=== PATIENT | female | born 1970 | race Caucasian/White ===

== ENCOUNTER 2017-04-03 05:30 | Day surgery (SDC) | payer OTHER ==
[~2017-04-03] VITALS: Ht 172.7 cm; Wt 87.1 kg
[2017-04-03 05:52] VITALS: O2SAT 99
[2017-04-03] MEDS ORDERED: CEFAZOLIN 2 GM IVPB PREMIX 50 ML IV ONE (07:20)
[2017-04-03] MEDS ORDERED: NS 1000 ML BAG IV ONE (07:20)
[2017-04-03] MEDS ORDERED: ROCURONIUM BROMIDE 10 MG/ML (ZEMURON) IV ONE (07:20)
[2017-04-03] MEDS ORDERED: MIDAZOLAM HCL 5 MG/5 ML VIAL IVP ONE (07:20)
[2017-04-03] MEDS ORDERED: ONDANSETRON HCL 4 MG/2 ML VIAL IVP ONE (07:20)
[2017-04-03] MEDS ORDERED: BUPIVACAINE /EPINEPHRINE/PF 0.5% 30 ML VIAL INJ ONE (07:20)
[2017-04-03] MEDS ORDERED: KETOROLAC TROMETHAMINE 30 MG VIAL IVP ONE (07:20)
[2017-04-03] MEDS ORDERED: SEVOFLURANE 15 MIN GAS INH ONE (07:20)
[2017-04-03] MEDS ORDERED: PROPOFOL 200MG/ 20ML VIAL (DIPRIVAN) IV ONE (07:20)
[2017-04-03] MEDS ORDERED: fentaNYL CITRATE 250 MCG/5 ML AMP IV ONE (07:20)
[2017-04-03] MEDS ORDERED: NS IRRIG SOLN 1000 ML IR ONE (07:20)
[2017-04-03] MEDS ORDERED: LR 1,000 ML IV.SOLN IV ONE (07:20)
[2017-04-03] MEDS ORDERED: LR 1,000 ML IV SCH (09:23)
[2017-04-03] MEDS ORDERED: MORPHINE 4 MG/ML INJ. SYRINGE IVP PRN ×2 (09:30)
[2017-04-03] MEDS ORDERED: ONDANSETRON HCL 4 MG/2 ML VIAL IVP PRN (09:30)
[2017-04-03] MEDS ORDERED: OXYCODONE/ACETAMINOPHEN 5-325 TABLET PO PRN (09:30)
[2017-04-03] MEDS ORDERED: METOCLOPRAMIDE HCL 10 MG/2 ML VIAL IVP PRN (09:30)
[2017-04-03] MEDS ORDERED: HYDROmorphone 2 MG TAB PO PRN (09:30)
[2017-04-03] MEDS: MORPHINE 4 MG/ML INJ. SYRINGE IVP PRN ×2 (09:50→10:21)
[2017-04-03] MEDS ORDERED: MORPHINE 4 MG/ML INJ. SYRINGE ONE ×2 (09:57→10:27)
[2017-04-03 12:11] VITALS: BP 125/79; PULSE 75; RESP 14
== END 2017-04-03 13:25 | disposition home or self-care (01) ==
LOC: SMU 05:30 → SDS 05:30
PROVIDERS: ATTEND Obstetrics & Gynecology
DX: D25.1 Intramural leiomyoma of uterus (principal); D25.2 Subserosal leiomyoma of uterus; F41.9 Anxiety disorder, unspecified; I10 Essential (primary) hypertension; Z98.890 Other specified postprocedural states; Z82.49 Family history of ischemic heart disease and other diseases of the circulatory system
CPT/HCPCS: 36415; 57000; 58571; 86886; 86900; 86901; 88307; C1727; J0690; J1885; J2250; J2270; J2405; J2704; J3010; J3490; J7030; J7120; E0190